=== PATIENT | male | born 1990 | race Caucasian/White ===

== ENCOUNTER 2019-09-25 02:08 | Emergency (ER) | payer OTHER, MEDICAID, SELFPAY ==
[2019-09-25 02:15] VITALS: BP 108/72; PULSE 91; RESP 15; O2SAT 98; BMI 21.7
--- NOTE | 2019-09-25 02:45 | ED.PSYCH ---
HPI - Psych <Judi Ceballos, DO - Last Filed: 09/26/19 06:20> General Chief Complaint: Psychiatric Symptoms Stated Complaint: suicidal/tried to jump off bridge Time Seen by Provider: 09/25/19 02:27 Source: patient and police Mode of arrival: Ambulatory (escorted via PD) Limitations: no limitations History of Present Illness HPI Narrative: This is a 29-year-old male who is brought in involuntarily by [employer]. They had been contacted earlier this evening by patient's brother because he has been sending text messages to his brother as well as other family members that were concerning that he may be trying to harm himself. Patient was contacted by the State patrol, they evaluated him had a discussion patient denied that he was intending to harm himself. He was released and the officer then spoke again with a family member who states that they were very concerned and had some additional tacks that were concerning. The officer followed in the direction that he knew the vehicle was traveling side [place] the [place], he pulled over saw the patient on the bridge. He yelled for him to stop and patient began to run along the bridge in when he was within about 8 ft the patient began trying to climb over the railing to jump into the water. Patient currently denies that he was trying to harm himself. He denies any suicidal or homicidal intent or behavior. He denies that he was trying to jump off the bridge and states that the officer tackled him. Patient states he has been depressed, he had fall causing fractures in his feet which required several surgeries and he states he has had a wound on his heel which has not been very slow to heal but has been told that the bone is not infected. Patient states that he has had financial issues and missed a mortgage payment. Patient had told the officer that his brother was sleeping with his girlfriend, the officer was in touch with the brother who states that he is happily and that the patient has been single for a prolonged. I also spoke with the patient's father who states had a psychotic episode several years ago. He is currently seeing a psychiatrist Dr. Adam and takes Ritalin and Xanax. Patient currently denies any tobacco, alcohol or illicit street drugs. Patient did state to nursing that he uses marijuana. Related Data Allergies Allergy/AdvReac Type Severity Reaction Status Date / Time haloperidol [From Haldol] Allergy Verified 09/25/19 07:55 Review of Systems <Judi Ceballos DO - Last Filed: 09/26/19 06:20> Review of Systems ROS Unobtainable: All systems reviewed & are unremarkable except as noted in HPI and below Patient History <Judi Ceballos DO - Last Filed: 09/26/19 06:20> Social History (Updated 09/25/19 @ 03:06 by Judi Ceballos DO) substance use type: marijuana Exam <Judi Ceballos DO - Last Filed: 09/26/19 06:20> Narrative Exam Narrative: GENERAL: Alert and oriented x three, pale mildly disheveled male. HEENT: Head normocephalic, atraumatic, EOMI, pupils reactive, face symmetric, moist mucous membranes NECK: Supple, full range of motion CARDIOVASCULAR: Regular rate and rhythm without murmurs, rubs or gallops. RESPIRATORY: Breath sounds equal bilaterally, no wheezes rales or rhonchi. ABDOMEN: Soft, nontender. Normoactive bowel sounds all 4 quadrants. No guarding or rebound, rigidity, no mass : No CVA tenderness EXTREMITIES: Normal range of motion, no clubbing or edema. Neurovascularly intact NEUROLOGICAL: Cranial nerves II through XII grossly intact. Moving all extremities. Normal gait into department. SKIN: Warm, dry, no petechiae, no rashes or lesions other than heel of the right foot has open with odor, granulation tissue. No active discharge. PSYCH: Patient states he is depressed. He denies any suicidal ideation, intent, homicidal ideation or intent. No hallucinations. Initial Vital Signs Initial Vital Signs: Vital Signs Pulse Rate 91 H 09/25/19 02:15 Respiratory Rate 15 09/25/19 02:15 Blood Pressure 108/72 09/25/19 02:15 Pulse Oximetry 98 09/25/19 02:15 <Pierre Monterroso DO - Last Filed: 09/25/19 19:22> Initial Vital Signs Initial Vital Signs: Vital Signs Pulse Rate 91 H 09/25/19 02:15 Respiratory Rate 15 09/25/19 02:15 Blood Pressure 108/72 09/25/19 02:15 Pulse Oximetry 98 09/25/19 02:15 Course <Judi Ceballos, DO - Last Filed: 09/26/19 06:20> Orders Ordered: Discontinued Medications Acetaminophen (Tylenol) 975 mg PO NOW ONE Stop: 09/25/19 10:54 Last Admin: 09/25/19 10:57 Dose: 975 mg Documented by: ROBYN Diphenhydramine HCl (Benadryl) 50 mg IM NOW ONE Stop: 09/25/19 07:09 Last Admin: 09/25/19 07:22 Dose: 50 mg Documented by: ROBYN Haloperidol (Haldol) 5 mg IM NOW ONE Stop: 09/25/19 07:09 Last Admin: 09/25/19 07:23 Dose: 5 mg Documented by: ROBYN Lorazepam (Ativan) 2 mg IM NOW ONE Stop: 09/25/19 07:09 Last Admin: 09/25/19 07:23 Dose: 2 mg Documented by: ROBYN Olanzapine (Zyprexa) 10 mg IM NOW ONE Stop: 09/25/19 07:30 Last Admin: 09/25/19 07:53 Dose: 10 mg Documented by: ROBYN Vital Signs Vital signs: Vital Signs - 8 hr 09/25/19 23:21 09/26/19 05:20 Temperature 98.8 F Pulse Rate 78 83 Respiratory Rate 16 16 Blood Pressure [Left Arm] 128/84 Blood Pressure [Right Arm] 110/67 Pulse Oximetry 93 96 <Pierre Monterroso DO - Last Filed: 09/25/19 19:22> Course Course Narrative: Patient received in sign out from Dr. Ceballos. I have performed an independent history and physical exam. The patient is awake, alert and oriented but very disagreeable. He denies any ongoing suicidal or homicidal ideation and wants no help. When asked why he went to [place] his responses why do you think I went. I spent a significant amount of time discussing the process of medical clearance and my concern for the chronic infection on his heel given it is foul smell. He continues to refuse close examination or imaging and begins to escalate become agitated and disagreeable. At this point time the patient seems unaware of the possibility of severe medical condition despite ongoing discussion of risk and benefit. He merely tells me to shut up and get the fuck out of his room. It is my opinion that we will need to sedate the patient in order to complete a full medical exam Orders Ordered: Discontinued Medications Acetaminophen (Tylenol) 975 mg PO NOW ONE Stop: 09/25/19 10:54 Last Admin: 09/25/19 10:57 Dose: 975 mg Documented by: ROBYN Diphenhydramine HCl (Benadryl) 50 mg IM NOW ONE Stop: 09/25/19 07:09 Last Admin: 09/25/19 07:22 Dose: 50 mg Documented by: ROBYN Haloperidol (Haldol) 5 mg IM NOW ONE Stop: 09/25/19 07:09 Last Admin: 09/25/19 07:23 Dose: 5 mg Documented by: ROBYN Lorazepam (Ativan) 2 mg IM NOW ONE Stop: 09/25/19 07:09 Last Admin: 09/25/19 07:23 Dose: 2 mg Documented by: ROBYN Olanzapine (Zyprexa) 10 mg IM NOW ONE Stop: 09/25/19 07:30 Last Admin: 09/25/19 07:53 Dose: 10 mg Documented by: ROBYN Vital Signs Vital signs: Vital Signs - 8 hr 09/25/19 23:21 09/26/19 05:20 Temperature 98.8 F Pulse Rate 78 83 Respiratory Rate 16 16 Blood Pressure [Left Arm] 128/84 Blood Pressure [Right Arm] 110/67 Pulse Oximetry 93 96 Mental Status Exam Patient Appearance: Disheveled Level of Consciousness: Alert and Appropriate Mood Description: Angry Ability to Follow Directions: Good Physical Status Respirations: Normal respiratory rate Cardiac: Regular Rate Assessment of Situation Behavior necessitating restraint: Agitated Restraint risks explained to family: Yes Patient's response to restraint use: Get the fuck out of here MDM - Psych <Judi Ceballos, DO - Last Filed: 09/26/19 06:20> Lab Data Result diagrams: 09/25/19 02:34 09/25/19 02:34 Labs: Lab Results 09/25/19 09/25/19 09/25/19 Range/Units 02:34 02:34 02:34 WBC 5.4 (4.5-11.0) X10^3/uL RBC 4.79 (4.5-5.9) X10^6/uL Hgb 13.5 (13.5-17.5) g/dL Hct 39.1 L (41-53) % MCV 81.6 (80-100) fL MCH 28.2 (26-34) PG MCHC 34.5 (30-36) % RDW 12.9 (11.6-14.8) % Plt Count 237 (150-400) X10^3/uL Neut % (Auto) 70.8 (50-75) % Lymph % (Auto) 21.2 L (25-40) % [place] % (Auto) 5.5 (3-14) % Eos % (Auto) 2.3 (2-4) % Baso % (Auto) 0.2 (0-2) % Neut # (Auto) 3900 (2673-3117) /uL Lymph # (Auto) 1200 (8057-3980) /uL [place] # (Auto) 300 (0-900) /uL Eos # (Auto) 100 (0-450) /uL Baso # (Auto) 0 (0-100) /uL ESR (0-15) MM/HR Sodium 142 (137-145) mmol/L Potassium 4.0 (3.4-5.1) mmol/L Chloride 101 (98-107) mmol/L Carbon Dioxide 29 (22-32) mmol/L BUN 12 (9-20) mg/dL Creatinine 1.00 (0.66-1.25) mg/dL Estimated GFR > 60.0 (>60) mL/min BUN/Creatinine Ratio 12.0 (6-22) Glucose 110 H (70-100) mg/dL Calcium 10.2 (8.4-10.2) mg/dL Total Bilirubin 0.8 (0.2-1.3) mg/dL AST 26 (17-59) IU/L ALT 20 (<50) IU/L Alkaline Phosphatase 70 (38-126) U/L C-Reactive Protein (<1.0) mg/dL Total Protein 7.8 (6.3-8.2) g/dL Albumin 4.8 (3.5-5.0) g/dL Globulin 3.0 (1.7-4.1) g/dL Albumin/Globulin Ratio 1.6 (1.0-2.8) Procalcitonin < 0.05 (<0.5) ng/mL TSH (0.47-4.68) uIU/mL Salicylates < 1.0 (<20) mg/dL U Morph 300 ng/mL cutoff (Negative) Ur Oxycodone Screen (Negative) Urine Methadone Screen (Negative) Acetaminophen < 10 L (10-30) ug/mL Ur Barbiturates Screen (Negative) U Tricyclic Antidepress (Negative) Ur Phencyclidine Scrn (Negative) Ur Amphetamines Screen (Negative) U Methamphetamines Scrn (Negative) Ur MDMA Scrn (Ecstasy) (Negative) U Benzodiazepines Scrn (Negative) Urine Cocaine Screen (Negative) U Marijuana (THC) Screen (Negative) Ethyl Alcohol < 10 ( - 10) mg/dL 09/25/19 09/25/19 09/25/19 Range/Units 02:34 02:34 02:34 WBC (4.5-11.0) X10^3/uL RBC (4.5-5.9) X10^6/uL Hgb (13.5-17.5) g/dL Hct (41-53) % MCV (80-100) fL MCH (26-34) PG MCHC (30-36) % RDW (11.6-14.8) % Plt Count (150-400) X10^3/uL Neut % (Auto) (50-75) % Lymph % (Auto) (25-40) % [place] % (Auto) (3-14) % Eos % (Auto) (2-4) % Baso % (Auto) (0-2) % Neut # (Auto) (5158-2447) /uL Lymph # (Auto) (0517-5263) /uL [place] # (Auto) (0-900) /uL Eos # (Auto) (0-450) /uL Baso # (Auto) (0-100) /uL ESR 16 H (0-15) MM/HR Sodium (137-145) mmol/L Potassium (3.4-5.1) mmol/L Chloride (98-107) mmol/L Carbon Dioxide (22-32) mmol/L BUN (9-20) mg/dL Creatinine (0.66-1.25) mg/dL Estimated GFR (>60) mL/min BUN/Creatinine Ratio (6-22) Glucose (70-100) mg/dL Calcium (8.4-10.2) mg/dL Total Bilirubin (0.2-1.3) mg/dL AST (17-59) IU/L ALT (<50) IU/L Alkaline Phosphatase (38-126) U/L C-Reactive Protein 3.2 H (<1.0) mg/dL Total Protein (6.3-8.2) g/dL Albumin (3.5-5.0) g/dL Globulin (1.7-4.1) g/dL Albumin/Globulin Ratio (1.0-2.8) Procalcitonin (<0.5) ng/mL TSH 0.52 (0.47-4.68) uIU/mL Salicylates (<20) mg/dL U Morph 300 ng/mL cutoff (Negative) Ur Oxycodone Screen (Negative) Urine Methadone Screen (Negative) Acetaminophen (10-30) ug/mL Ur Barbiturates Screen (Negative) U Tricyclic Antidepress (Negative) Ur Phencyclidine Scrn (Negative) Ur Amphetamines Screen (Negative) U Methamphetamines Scrn (Negative) Ur MDMA Scrn (Ecstasy) (Negative) U Benzodiazepines Scrn (Negative) Urine Cocaine Screen (Negative) U Marijuana (THC) Screen (Negative) Ethyl Alcohol ( - 10) mg/dL 09/25/19 Range/Units 16:15 WBC (4.5-11.0) X10^3/uL RBC (4.5-5.9) X10^6/uL Hgb (13.5-17.5) g/dL Hct (41-53) % MCV (80-100) fL MCH (26-34) PG MCHC (30-36) % RDW (11.6-14.8) % Plt Count (150-400) X10^3/uL Neut % (Auto) (50-75) % Lymph % (Auto) (25-40) % [place] % (Auto) (3-14) % Eos % (Auto) (2-4) % Baso % (Auto) (0-2) % Neut # (Auto) (0620-5178) /uL Lymph # (Auto) (1283-7190) /uL [place] # (Auto) (0-900) /uL Eos # (Auto) (0-450) /uL Baso # (Auto) (0-100) /uL ESR (0-15) MM/HR Sodium (137-145) mmol/L Potassium (3.4-5.1) mmol/L Chloride (98-107) mmol/L Carbon Dioxide (22-32) mmol/L BUN (9-20) mg/dL Creatinine (0.66-1.25) mg/dL Estimated GFR (>60) mL/min BUN/Creatinine Ratio (6-22) Glucose (70-100) mg/dL Calcium (8.4-10.2) mg/dL Total Bilirubin (0.2-1.3) mg/dL AST (17-59) IU/L ALT (<50) IU/L Alkaline Phosphatase (38-126) U/L C-Reactive Protein (<1.0) mg/dL Total Protein (6.3-8.2) g/dL Albumin (3.5-5.0) g/dL Globulin (1.7-4.1) g/dL Albumin/Globulin Ratio (1.0-2.8) Procalcitonin (<0.5) ng/mL TSH (0.47-4.68) uIU/mL Salicylates (<20) mg/dL U Morph 300 ng/mL cutoff Negative (Negative) Ur Oxycodone Screen Positive H (Negative) Urine Methadone Screen Negative (Negative) Acetaminophen (10-30) ug/mL Ur Barbiturates Screen Negative (Negative) U Tricyclic Antidepress Negative (Negative) Ur Phencyclidine Scrn Negative (Negative) Ur Amphetamines Screen Negative (Negative) U Methamphetamines Scrn Negative (Negative) Ur MDMA Scrn (Ecstasy) Negative (Negative) U Benzodiazepines Scrn Positive H (Negative) Urine Cocaine Screen Positive H (Negative) U Marijuana (THC) Screen Positive H (Negative) Ethyl Alcohol ( - 10) mg/dL MDM Narrative Medical decision making narrative: Patient is brought to the department against his will and wishes to leave. He states that he is not suicidal although he initially told the offers Sir this as well, when they really encountered [place] and when they asked him to stop he began running and attempted to climb over the bridge to jump into the water and was only stopped by the officer themselves. Patient continues to deny that he wants to harm or kill himself and repeatedly asks to leave the department. He initially refused lab draw but was verbally persuaded by the officers. Patient has been seen at [facility] for his foot and records were requested history of the had any known osteomyelitis or just a healing wound on his heel. Patient both states he has had multiple imaging that shows no infection in the bone. Patient refuses imaging, we did attempt multiple times to get imaging from [facility] but it is through their outpatient, [facility] and we cannot get hold images. We attempted twice to get imaging him patient has refused both times because he states he gets this should done every couple months and does not need it. Patient is signed out to Dr. Monterroso. Discussed that patient may need for further imaging. Lab work. Patient has still not given a urine for UDS. He is refusing to be cooperative throughout his stay. And I would state that he continues to be involuntary. Did discuss foot imaging potentially could get MRI today after 9:00 a.m. although patient would require sedation for this or xray imaging. Patient signed out to myself by Loc. Patient up several times but slept majority of night. <Pierre Monterroso, DO - Last Filed: 09/25/19 19:22> Lab Data Labs: Lab Results 09/25/19 09/25/19 09/25/19 Range/Units 02:34 02:34 02:34 WBC 5.4 (4.5-11.0) X10^3/uL RBC 4.79 (4.5-5.9) X10^6/uL Hgb 13.5 (13.5-17.5) g/dL Hct 39.1 L (41-53) % MCV 81.6 (80-100) fL MCH 28.2 (26-34) PG MCHC 34.5 (30-36) % RDW 12.9 (11.6-14.8) % Plt Count 237 (150-400) X10^3/uL Neut % (Auto) 70.8 (50-75) % Lymph % (Auto) 21.2 L (25-40) % [place] % (Auto) 5.5 (3-14) % Eos % (Auto) 2.3 (2-4) % Baso % (Auto) 0.2 (0-2) % Neut # (Auto) 3900 (0924-3234) /uL Lymph # (Auto) 1200 (7958-0267) /uL [place] # (Auto) 300 (0-900) /uL Eos # (Auto) 100 (0-450) /uL Baso # (Auto) 0 (0-100) /uL ESR (0-15) MM/HR Sodium 142 (137-145) mmol/L Potassium 4.0 (3.4-5.1) mmol/L Chloride 101 (98-107) mmol/L Carbon Dioxide 29 (22-32) mmol/L BUN 12 (9-20) mg/dL Creatinine 1.00 (0.66-1.25) mg/dL Estimated GFR > 60.0 (>60) mL/min BUN/Creatinine Ratio 12.0 (6-22) Glucose 110 H (70-100) mg/dL Calcium 10.2 (8.4-10.2) mg/dL Total Bilirubin 0.8 (0.2-1.3) mg/dL AST 26 (17-59) IU/L ALT 20 (<50) IU/L Alkaline Phosphatase 70 (38-126) U/L C-Reactive Protein (<1.0) mg/dL Total Protein 7.8 (6.3-8.2) g/dL Albumin 4.8 (3.5-5.0) g/dL Globulin 3.0 (1.7-4.1) g/dL Albumin/Globulin Ratio 1.6 (1.0-2.8) Procalcitonin < 0.05 (<0.5) ng/mL TSH (0.47-4.68) uIU/mL Salicylates < 1.0 (<20) mg/dL U Morph 300 ng/mL cutoff (Negative) Ur Oxycodone Screen (Negative) Urine Methadone Screen (Negative) Acetaminophen < 10 L (10-30) ug/mL Ur Barbiturates Screen (Negative) U Tricyclic Antidepress (Negative) Ur Phencyclidine Scrn (Negative) Ur Amphetamines Screen (Negative) U Methamphetamines Scrn (Negative) Ur MDMA Scrn (Ecstasy) (Negative) U Benzodiazepines Scrn (Negative) Urine Cocaine Screen (Negative) U Marijuana (THC) Screen (Negative) Ethyl Alcohol < 10 ( - 10) mg/dL 11/17/19 11/17/19 11/17/19 Range/Units 02:34 02:34 02:34 WBC (4.5-11.0) X10^3/uL RBC (4.5-5.9) X10^6/uL Hgb (13.5-17.5) g/dL Hct (41-53) % MCV (80-100) fL MCH (26-34) PG MCHC (30-36) % RDW (11.6-14.8) % Plt Count (150-400) X10^3/uL Neut % (Auto) (50-75) % Lymph % (Auto) (25-40) % [place] % (Auto) (3-14) % Eos % (Auto) (2-4) % Baso % (Auto) (0-2) % Neut # (Auto) (0002-9752) /uL Lymph # (Auto) (1289-0190) /uL [place] # (Auto) (0-900) /uL Eos # (Auto) (0-450) /uL Baso # (Auto) (0-100) /uL ESR 16 H (0-15) MM/HR Sodium (137-145) mmol/L Potassium (3.4-5.1) mmol/L Chloride (98-107) mmol/L Carbon Dioxide (22-32) mmol/L BUN (9-20) mg/dL Creatinine (0.66-1.25) mg/dL Estimated GFR (>60) mL/min BUN/Creatinine Ratio (6-22) Glucose (70-100) mg/dL Calcium (8.4-10.2) mg/dL Total Bilirubin (0.2-1.3) mg/dL AST (17-59) IU/L ALT (<50) IU/L Alkaline Phosphatase (38-126) U/L C-Reactive Protein 3.2 H (<1.0) mg/dL Total Protein (6.3-8.2) g/dL Albumin (3.5-5.0) g/dL Globulin (1.7-4.1) g/dL Albumin/Globulin Ratio (1.0-2.8) Procalcitonin (<0.5) ng/mL TSH 0.52 (0.47-4.68) uIU/mL Salicylates (<20) mg/dL U Morph 300 ng/mL cutoff (Negative) Ur Oxycodone Screen (Negative) Urine Methadone Screen (Negative) Acetaminophen (10-30) ug/mL Ur Barbiturates Screen (Negative) U Tricyclic Antidepress (Negative) Ur Phencyclidine Scrn (Negative) Ur Amphetamines Screen (Negative) U Methamphetamines Scrn (Negative) Ur MDMA Scrn (Ecstasy) (Negative) U Benzodiazepines Scrn (Negative) Urine Cocaine Screen (Negative) U Marijuana (THC) Screen (Negative) Ethyl Alcohol ( - 10) mg/dL 09/25/19 Range/Units 16:15 WBC (4.5-11.0) X10^3/uL RBC (4.5-5.9) X10^6/uL Hgb (13.5-17.5) g/dL Hct (41-53) % MCV (80-100) fL MCH (26-34) PG MCHC (30-36) % RDW (11.6-14.8) % Plt Count (150-400) X10^3/uL Neut % (Auto) (50-75) % Lymph % (Auto) (25-40) % [place] % (Auto) (3-14) % Eos % (Auto) (2-4) % Baso % (Auto) (0-2) % Neut # (Auto) (8067-9271) /uL Lymph # (Auto) (7909-9230) /uL [place] # (Auto) (0-900) /uL Eos # (Auto) (0-450) /uL Baso # (Auto) (0-100) /uL ESR (0-15) MM/HR Sodium (137-145) mmol/L Potassium (3.4-5.1) mmol/L Chloride (98-107) mmol/L Carbon Dioxide (22-32) mmol/L BUN (9-20) mg/dL Creatinine (0.66-1.25) mg/dL Estimated GFR (>60) mL/min BUN/Creatinine Ratio (6-22) Glucose (70-100) mg/dL Calcium (8.4-10.2) mg/dL Total Bilirubin (0.2-1.3) mg/dL AST (17-59) IU/L ALT (<50) IU/L Alkaline Phosphatase (38-126) U/L C-Reactive Protein (<1.0) mg/dL Total Protein (6.3-8.2) g/dL Albumin (3.5-5.0) g/dL Globulin (1.7-4.1) g/dL Albumin/Globulin Ratio (1.0-2.8) Procalcitonin (<0.5) ng/mL TSH (0.47-4.68) uIU/mL Salicylates (<20) mg/dL U Morph 300 ng/mL cutoff Negative (Negative) Ur Oxycodone Screen Positive H (Negative) Urine Methadone Screen Negative (Negative) Acetaminophen (10-30) ug/mL Ur Barbiturates Screen Negative (Negative) U Tricyclic Antidepress Negative (Negative) Ur Phencyclidine Scrn Negative (Negative) Ur Amphetamines Screen Negative (Negative) U Methamphetamines Scrn Negative (Negative) Ur MDMA Scrn (Ecstasy) Negative (Negative) U Benzodiazepines Scrn Positive H (Negative) Urine Cocaine Screen Positive H (Negative) U Marijuana (THC) Screen Positive H (Negative) Ethyl Alcohol ( - 10) mg/dL Discharge Plan Departure Clinical Impression: Suicide attempt
[2019-09-25 02:46] LABS: Add Manual Diff / Slide Review NO; Basophils Absolute Auto 0 /uL (0-100); Basophils Percent Auto 0.2 % (0-2); Eosinophils Absolute Auto 100 /uL (0-450); Eosinophils Percent Auto 2.3 % (2-4); Hematocrit 39.1 % (41-53); Hemoglobin 13.5 g/dL (13.5-17.5); Lymphocytes Absolute Auto 1200 /uL (1100-4500); Lymphocytes Percent Auto 21.2 % (25-40); Mean Corpuscular HGB Conc 34.5 % (30-36); Mean Corpuscular Hemoglobin 28.2 PG (26-34); Mean Corpuscular Volume 81.6 fL (80-100); Monocytes Absolute Auto 300 /uL (0-900); Monocytes Percent Auto 5.5 % (3-14); Neutrophils Absolute Auto 3900 /uL (1500-7000); Neutrophils Percent Auto 70.8 % (50-75); Platelet Count 237 X10^3/uL (150-400); Red Blood Cell Count 4.79 X10^6/uL (4.5-5.9); Red Cell Distribution Width 12.9 % (11.6-14.8); White Blood Cell Count 5.4 X10^3/uL (4.5-11.0)
[2019-09-25 02:59] LABS: Acetaminophen < 10 ug/mL (10-30); Alanine Aminotransferase 20 IU/L (<50); Albumin 4.8 g/dL (3.5-5.0); Albumin Globulin Ratio 1.6 (1.0-2.8); Alkaline Phosphatase 70 U/L (38-126); Aspartate Aminotransferase 26 IU/L (17-59); Bilirubin Total 0.8 mg/dL (0.2-1.3); Blood Urea Nitrogen 12 mg/dL (9-20); Calcium 10.2 mg/dL (8.4-10.2); Carbon Dioxide 29 mmol/L (22-32); Chloride 101 mmol/L (98-107); Estimated Glomerular Filt Rate > 60.0 mL/min (>60); Ethanol (ETOH) < 10 mg/dL; Glucose 110 mg/dL (70-100); HEMOLYSIS < 15 (0-50); Salicylate < 1.0 mg/dL (<20); Sodium 142 mmol/L (137-145); Total Protein 7.8 g/dL (6.3-8.2)
--- NOTE | 2019-09-25 03:03 | PC.NURSE ---
Pt denied having thoughts of suicide but placed in non ligature room due to attempting to go over the bridge.
[2019-09-25 03:13] LABS: Procalcitonin < 0.05 ng/mL (<0.5)
--- NOTE | 2019-09-25 03:18 | PC.NURSE ---
patient is calm and covered with a blanket
[2019-09-25 03:35] LABS: Thyroid Stimulating Hormone 0.52 uIU/mL (0.47-4.68)
--- NOTE | 2019-09-25 03:48 | PC.NURSE ---
patient being difficult not wanting to give urine sample but is polite patient is sleeping otherwise
--- NOTE | 2019-09-25 03:59 | PC.NURSE ---
Pt had declined xray of foot. Provider aware. Stated to try and get previous xray reports, Pt signed consent form to obtain records.
--- NOTE | 2019-09-25 04:12 | PC.NURSE ---
Pt was asked again for urine sample. He asked again why we we needed it for medical clearance. Explained the purpose of needing urine. He then asked How long after I give you the urine can I leave? Was told the time frame was uncertain, he responded I would have given you a sample if you would have given me a straight answer.
--- NOTE | 2019-09-25 04:57 | PC.NURSE ---
Into room again to ask for urine sample. Pt refused to give sample.
--- NOTE | 2019-09-25 05:02 | PC.NURSE ---
patient is sleeping peacfully is calm and still refusing to give urine sample
[2019-09-25 05:33] LABS: C-Reactive Protein Quant 3.2 mg/dL (<1.0)
[2019-09-25 05:51] LABS: Erythrocyte Sedimentation Rate 16 MM/HR (0-15)
--- NOTE | 2019-09-25 06:46 | PC.NURSE ---
patient refused X-Ray on foot
--- NOTE | 2019-09-25 07:03 | PC.NURSE ---
Late entry: When patient was undressing, noticed dressing to right heal. Dressing appeared old and wound had foul stench. Place an Alvyn gentle border dressing to heal.
--- NOTE | 2019-09-25 07:15 | PC.NURSE ---
patient refused breakfast and all things asked of him refused urine test x rays patient is noncompliant
[2019-09-25] MEDS: diphenhydrAMINE 50 MG/ML VIAL IM (07:22)
[2019-09-25] MEDS: HALOPERIDOL 5 MG/ML VIAL IM (07:23)
[2019-09-25] MEDS: LORazepam 2 MG/ML INJ IM (07:23)
--- NOTE | 2019-09-25 07:23 | PC.NURSE ---
patient threw nurses pulse ox across room and refused vitals patient is getting upset
--- NOTE | 2019-09-25 07:29 | PC.NURSE ---
patient is refusing all
[2019-09-25 07:37] VITALS: BP 111/78; PULSE 87; RESP 16; TEMP 36.6
--- NOTE | 2019-09-25 07:39 | PC.NURSE ---
[facility] stand by.
--- NOTE | 2019-09-25 07:44 | PC.NURSE ---
Went to give medications to pt. stated had allergy. Called dad and confirmed allergy to Haldol. Provider aware, new orders given.
--- NOTE | 2019-09-25 07:47 | PC.NURSE ---
Patient being given medication ordered by physician and [place] [employer] are assisting RN with holding patient still, patient cursing at police officers
[2019-09-25] MEDS: OLANZapine 10 MG VIAL IM (07:53)
--- NOTE | 2019-09-25 07:54 | PC.NURSE ---
pt medicated per dr isidro order, assist with 3 [place] [employer] patrol officer. valeria ba benadryl, IM.
--- NOTE | 2019-09-25 08:04 | PC.NURSE ---
pt right position, refused nutritions.
--- NOTE | 2019-09-25 08:06 | PC.NURSE ---
pt refusing xrays, vitals, pt still needing medical clearance. pt repeatedly stating, I dont want xray, I have to pay for it, I just had it done at [facility] 4-6 weeks ago. pt states, his ankle is not causing him mental problem. repeatedly asking how long he will be in er, when reassured, pt covers his head with sheet, and refusing to have conversations.
--- NOTE | 2019-09-25 08:10 | PC.NURSE ---
attempted to take his vitals, pt threw out oxygen monitor to the floor, (broke)
--- NOTE | 2019-09-25 08:27 | PC.NURSE ---
refused, pt repositioning self in bed. +with slurred speech at this time, skin warm dry pink.
--- NOTE | 2019-09-25 08:51 | PC.NURSE ---
continue with close observation, 1:1, on chemical restraint.
--- NOTE | 2019-09-25 09:38 | DI.RAD.S_ITS ---
PROCEDURE: XR CALCANEOUS RT MIN 2V INDICATIONS: persistent infection, osteo? TECHNIQUE: Two views of the calcaneus were acquired. COMPARISON: None. FINDINGS: Bones: Extensive postoperative changes of the calcaneus are present related to previous open reduction internal fixation procedure. The bone mineralization is decreased. There likely are degenerative changes involving the middle and posterior subtalar joints. No acute fracture or dislocation is evident. No obvious bony erosions are appreciated. Soft tissues: No suspicious calcifications. Achilles tendon appears normal. IMPRESSION: 1. Postoperative changes related to prior calcaneal ORIF. 2. No acute fractures. 3. Evaluation for osteomyelitis is limited on this examination without prior films for comparison. Dictated by: Robin Briceno M.D. on 09/25/2019 at 9:07 Approved by: Robin Briceno M.D. on 09/25/2019 at 9:08
--- NOTE | 2019-09-25 10:17 | PC.NURSE ---
Patient asked for a candy bar and informed him we don't have any in the ER but gave him other choices of food items and he declined. He stated his foot is hurting bad
--- NOTE | 2019-09-25 10:52 | PC.NURSE ---
oriented to place.
[2019-09-25] MEDS: ACETAMINOPHEN 325 MG TABLET 975 MG PO (10:57)
--- NOTE | 2019-09-25 11:30 | PC.NURSE ---
Patient is resting with eyes closed.
--- NOTE | 2019-09-25 12:30 | PC.NURSE ---
Offered patient warm blanket, he refused.
--- NOTE | 2019-09-25 14:31 | PC.NURSE ---
Patient is resting with eyes closed
--- NOTE | 2019-09-25 15:14 | PC.NURSE ---
I asked patient if I could take vital signs, he refused. I asked patient if he needs to use the urinal, patient said no.
[2019-09-25 15:45] VITALS: RESP 16
--- NOTE | 2019-09-25 16:29 | CM.SWNOTE ---
Addendum entered by Jada Tubbs 09/25/19 16:42: LIGHT RAIL OPERATOR - Supply Planner Assessment LIGHT RAIL OPERATOR - Supply Planner Assessment Start: 09/25/19 16:10 Freq: Status: Active Protocol: Document 09/25/19 16:11 BORIS (Rec: 09/25/19 16:42 KJS [id number]) LIGHT RAIL OPERATOR/Supply Planner Assessment Time Spent with Patient Start date 09/25/19 Total time Care Management spent on 30 minutes patient visit-in minutes Mental Health Screening Include Onset, Duration, Intensity Presenting Problem Suicide attempt Precipitating Event(s) Multiple health issues including possible osteo of right foot. Other stressors include financial, family, and possible substance abuse. Current Behavioral Health Provider(s) Psychiatrist listed but needs Include Facility, Provider, Ph. # to be confirmed is Dr. Lr ph# [phone]. Psych. Hx Mental Health and Chemical Unknown Dependency Psychiatric Hospitalizations (date(s)/ Unknown location) Support System(s) Unknown Substance Abuse Screening Include Onset, Duration, Intensity Presenting Problem Patient refusing to urinate for evaluation Legal Concerns Legal Matters - Outstanding Issues Unknown Mental Status Orientation (Person/Place/Time) Oriented x3 at approximately 1600 however, patient refusing medical treatment. Dr. Monterroso attempting to obtain urine/ lab work to determine medical need. Affect Angry Thought Content - Specify/Describe Unknown Obsessions, Delusions, Hallucinations Speech (Ymydmh-Hjqz-Ivpuqgs-Rapid-Soft- Agressive Loud-Pressured) Motor (Tvhohi-Hyurbtouf-Dqzn-Other) Normal Insight (Present-Partially Present- Impaired judgement given ED Impaired) report. Impulse Control (Adequate-Impaired) None Memory (Ohwweuvhg-Atzwid-Xopoub, Unknown Impaired-Intact) Concentration (Intact-Impaired) Unknown Attention (Intact-Impaired) Intact Behavior (Appropriate-Inappropriate) Inappropriate. Refusing treatment and using foul language when approached for treatment with ED staff. Risk Assessment Suicidal Ideation (Plan) Yes Homicidal Ideation (Plan) Unkown 09/25/19 16:29 CM [employer] Note by Jada Tubbs Addendum entered by Jada Tubbs 09/25/19 16:42: Original Note: LIGHT RAIL OPERATOR Note: Received call from Dr. Monterroso this afternoon around 1400 requesting CM involvement will be needed when patient medically appropriate. Dr. Monterroso reports that patient not yet stable for MH assessment but he anticipates that DCR will need to be dispatched for involuntary placement. Patient is a 29yr old male brought in by [place] [facility] after attempting to end his life by jumping [place] [address]. [employer] were able to apprehend patient prior to this. LIGHT RAIL OPERATOR and RN/TREVOR Thompson met with Dr. Monterroso in ED to review current status. As of 1599 patient refusing to give urine and wants to leave. Patient currently medicated for agitation/aggression. LIGHT RAIL OPERATOR unable to do adequate assessment. Dr. Monterroso reports patient with possible osteo in right foot. He contributes this to why patient attempting to end his life. Many stressors including financial, family, and possible substance abuse? No listed NOK on demographic sheet. CM/AMELIA Thompson will attempt to obtain name/number of family. Address is in [place]? Unsure of psychiatric history but there is mention of psychiatrist in [place]. CM team to follow up on Thursday-. Also unclear of payor source. P: Pending. Patient is in MH crisis causing him to attempt to jump of [place] [address] and medical issues requiring acute care attention. At this time patient refusing assistance. Staff notified to call Police and/or Crisis line if patient attempts to leave AMA. Patient currently high suicide risk per current attempt. MARIAH Tran Initialized on 09/25/19 16:29 - END OF NOTE Original Note: LIGHT RAIL OPERATOR Note: Received call from Dr. Monterroso this afternoon around 1400 requesting CM involvement will be needed when patient medically appropriate. Dr. Monterroso reports that patient not yet stable for MH assessment but he anticipates that DCR will need to be dispatched for involuntary placement. Patient is a 29yr old male brought in by [place] [facility] after attempting to end his life by jumping [place] [address]. [facility] patient prior to this. LIGHT RAIL OPERATOR and RN/TREVOR Thompson met with Dr. Monterroso in ED to review current status. As of 1600 patient refusing to give urine and wants to leave. Patient currently medicated for agitation/aggression. LIGHT RAIL OPERATOR unable to do adequate assessment. Dr. Monterroso reports patient with possible osteo in right foot. He contributes this to why patient attempting to end his life. Many stressors including financial, family, and possible substance abuse? No listed NOK on demographic sheet. CM/AMELIA Thompson will attempt to obtain name/number of family. Address is in [place]? Unsure of psychiatric history but there is mention of psychiatrist in [place]. CM team to follow up on 09-26. Also unclear of payor source. P: Pending. Patient is in MH crisis causing him to attempt to jump of [place] [address] and medical issues requiring acute care attention. At this time patient refusing assistance. Staff notified to call Police and/or Crisis line if patient attempts to leave AMA. Patient currently high suicide risk per current attempt. MARIAH Tran
--- NOTE | 2019-09-25 16:45 | PC.NURSE ---
Patient appears to be resting with eyes closed.
[2019-09-25 16:46] LABS: Ur Creatinine Normal (Normal); Ur Specific Gravity Normal (Normal); Urine pH Normal (Normal)
[2019-09-25 16:47] LABS: UR Morphine/Opiate cutoff 300 Negative (Negative); Urine Amphetamines Negative (Negative); Urine Barbiturates Negative (Negative); Urine Benzodiazepines Positive (Negative); Urine Cocaine Positive (Negative); Urine MDMA Negative (Negative); Urine Methadone Negative (Negative); Urine Methamphetamines Negative (Negative); Urine Oxycodone Positive (Negative); Urine Phencyclidine Negative (Negative); Urine Tetrahydrocannabinol Positive (Negative); Urine Tricyclic Antidepressant Negative (Negative)
--- NOTE | 2019-09-25 17:02 | PC.NURSE ---
roland [phone]
--- NOTE | 2019-09-25 17:03 | PC.NURSE ---
father roland called inquiring keys to vehicle, checked in the personal bag, +, unable to release due to pt sleeping at this time.
--- NOTE | 2019-09-25 17:30 | PC.NURSE ---
Offered patient his tray, patient didn't respond to me. I left the chips by his bed side along with water. Patient appears to be resting with eyes closed.
[2019-09-25 19:11] VITALS: BP 131/81; PULSE 102; RESP 18; O2SAT 97
--- NOTE | 2019-09-25 19:15 | PC.NURSE ---
Patient is awake and wants to know when he is leaving. Patient was cooperative while getting vital signs.
--- NOTE | 2019-09-25 19:24 | CM.MNRNOTE ---
pt awake, pt updated with plan of care, social service consult in the morning. also that his father called inquiring for his keys, states I dont want him driving up from [address] and back, let them tow the truck called father to relay the message, no answer.
--- NOTE | 2019-09-25 20:00 | PC.NURSE ---
spoke with father of pt, relayed message, that suzette doesnt want to give up the keys to the vehicle.
--- NOTE | 2019-09-25 20:15 | PC.NURSE ---
Patient resting on bed on floor of room 13. Respirations even and unlabored. Pt appears in no acute distress. Pt has water and chips at bedside. Pt remains in 1:1 observations with door open.
--- NOTE | 2019-09-25 21:30 | PC.NURSE ---
Patient appears to be resting with eyes closed.
--- NOTE | 2019-09-25 22:45 | PC.NURSE ---
Patient resting with eyes closed.
[2019-09-25 23:21] VITALS: BP 110/67; PULSE 78; RESP 16; TEMP 37.1; O2SAT 93
--- NOTE | 2019-09-26 00:06 | PC.NURSE ---
Pt remains resting on mattress on floor. Respirations even and unlabored. Pt does not appear to be in acute distress. Offer for food and water declined. Still has water and chips at bedside. Sitter remains at bedside for 1:1 observation.
[2019-09-26 05:20] VITALS: BP 128/84; PULSE 83; RESP 16; O2SAT 96
--- NOTE | 2019-09-26 05:21 | PC.NURSE ---
Pt declines initial attempts to obtain vitals. Informed him that we needed new ones and offered food, drink, toilet, blankets ETC. pt declines all offers and complies with vitals. Pt returns to resting. Respirations even and unlabored.
--- NOTE | 2019-09-26 07:33 | PC.NURSE ---
Obtained patietn care. Patient sleeping, blankets covering his face. Even chest rise and fall. Breakfast tray ordered for patient. Continuous patient care monitoring.
--- NOTE | 2019-09-26 07:41 | PC.NURSE ---
Patient sleeping. Even resp and unlabored.
--- NOTE | 2019-09-26 08:09 | PC.NURSE ---
Patient's breakfast tray arrived but was unable to awake him so placed tray outside room
--- NOTE | 2019-09-26 10:01 | PC.NURSE ---
patient continues to sleep, moves independently.
--- NOTE | 2019-09-26 10:50 | PC.NURSE ---
Spoke with patient and asked him if there is anything specific he would like to eat or drink. Patient stated no one word answers to every question from patient. Declined need to use bathroom, refused any additional food or drink. states yes when asked if warm enough.
--- NOTE | 2019-09-26 12:11 | PC.NURSE ---
Spoke with patient offered him food, juice and warm blanket, he declined any at this time
--- NOTE | 2019-09-26 12:24 | PC.NURSE ---
Patient asked when am I going to get out of here.....informed him that social work rep will be coming to meet with him today
--- NOTE | 2019-09-26 13:29 | PC.NURSE ---
Offered food to patient, meal tray placed at bedside. Patient declined. Offered another beverage to patient. Patient states he will drink apple juice. Provided to patient. Discussed repeat blood work with patient no you are not drawing my blood again you already did that explained to patient the concern that he is not eating, drinking or urinating. Patient denies SI, denies the need for inpatient mental health. Patient agreeable to outpatient mental health services. Provider aware that patient refuses blood draw.
[2019-09-26 13:35] VITALS: BP 134/85; PULSE 100; RESP 18; TEMP 36.5; O2SAT 97
--- NOTE | 2019-09-26 15:02 | CM.DPC ---
Assessed patient this am, Found him to be calm and cooperative with regards to answering questions. Denies suicidal ideation either now or prior to ED visit. States, I was just out looking around - seeing the sights. When I pointed out it was night he shrugged and wouldn't talk any longer. I raised my eybrows and he said What? What are you thinking? I stated, I'm not sure why you think I should share that with you when you're not willing to be honest with me. Patient laughed out loud and said, That's the first honest answer I've gotten. When asked if he thought we were being dishonest, he said we just weren't right when we thought he was suicidal. I asked if he would be open to getting inpatient help, he said No, but I would be willing to go for outpatient therapy or something like that.
[2019-09-26 15:18] VITALS: BP 127/84; PULSE 78; RESP 18; TEMP 36.8
--- NOTE | 2019-09-26 15:46 | PC.NURSE ---
Patient requesting cell phone. Provided for patient. Checked to see if patient needed to urinate pt declined. Miguel has drank full glass of apple juice but refuses to eat. Patient states why is it a fucking problem that I don't need to urinate. I don't have anything to fucking drink Provided patient with additional apple juice. Lunch tray remains at bedside.
--- NOTE | 2019-09-26 18:09 | PC.NURSE ---
DCR Adam at bedside with patient.
--- NOTE | 2019-09-26 19:54 | PC.NURSE ---
Provider notified that patient wants his foot looked at. Reminded patient that xray and blood work was completed on his foot when arrived. Report given to Iliana CISNEROS obtaining patient care.
[2019-09-26] MEDS: LORazepam 0.5 MG TABLET PO (21:43)
[2019-09-26] MEDS: ACETAMINOPHEN 325 MG TABLET 650 MG PO (21:44)
--- NOTE | 2019-09-27 12:33 | CM.DPC ---
Late entry... Uncertain why following information was not saved in EMR despite my effort so here is summary... 1. Spoke with Pt. psychiatrist Dr. Lr in [place]. reported that other than ADHD he was unaware of any other mental health diagnosis and denied any knowledge/evidence that pt. had SI or HI ideation in past. Hadn't seen patient in a bit over a year. 2. Spoke with pt. father who reported that pt. had texted each immediate family member about midnight on Sunday 09/23 and told them he was sorry, in pain and loved them. Shortly after texts he had sent his brother a text informing him where his car and keys could be found. This worried family so MARY was contacte. Officer found pt. car at [address] and had to restrain pt. from jumping off bridge (see police report for specifics). Father stated that his son has been challenging, but NEVER suicidal. All of the above information was shared verbally with both CHANDANA Sarmiento, and Primjb Rodriguez prior to my leaving shift 09/26. No additional questions or needs expressed of me at that time.
--- NOTE | 2019-09-27 12:41 | PC.NURSE ---
Patient's mother called in today, requesting information regarding whether or not we performed an x-ray on his foot while he was here. Requested to speak with patient directly on phone. Phone was handed to the patient who verified his identity and he requested I give this information to his mother. Informed patient and his mother that we did perform an x-ray and that it was recommended to him that he follow up with his doctor.
== END 2019-09-26 22:07 | disposition home or self-care (01) ==
PROVIDERS: Emergency Medicine; Emergency Provider Emergency Medicine
DX: T14.91XA Suicide attempt, initial encounter (principal)
CPT/HCPCS: 36415; 73650; 80053; 80305; 80320; 80329; 81003; 84145; 84443; 85025; 85651; 86140; 93005; 96372; 99285; G0480; J1200; J1630; J2060; S0166